=== PATIENT | male | born 1945 | race Caucasian/White ===

== ENCOUNTER 2023-04-21 10:39 | Outpatient (CLI) | payer MEDICARE | END 2023-04-21 10:40 | disposition home or self-care (01) | LOC: CSHRAD 10:39 | PROVIDERS: ATTEND Family Medicine | DX: N20.0 Calculus of kidney (principal) | CPT/HCPCS: 74018 ==

== ENCOUNTER 2023-04-27 12:50 | Outpatient (CLI) | payer MEDICARE | END 2023-04-27 12:51 | disposition home or self-care (01) | LOC: CSHCT 12:50 | PROVIDERS: ATTEND Family Medicine | DX: N20.0 Calculus of kidney (principal); N13.30 Unspecified hydronephrosis; N28.82 Megaloureter; K57.30 Diverticulosis of large intestine without perforation or abscess without bleeding; K40.90 Unilateral inguinal hernia, without obstruction or gangrene, not specified as recurrent | CPT/HCPCS: 74176 ==